=== PATIENT | male | born 1985 | race Caucasian/White ===

== ENCOUNTER 2016-08-19 21:05 | Emergency (ER) | payer OTHER ==
[2016-08-19 21:30] VITALS: BP 132/79; PULSE 78; RESP 18; TEMP 98.9
--- NOTE | 2016-08-19 21:55 | ED ---
ENT HPI - General Chief complaint: Dental/Oral Stated complaint: Dental Time Seen by Provider: 08/19/16 21:32 Source: patient, RN notes reviewed Mode of arrival: ambulatory Limitations: no limitations - History of Present Illness Initial comments: 31-year-old male presents emergency Department chief complaint of left-sided dental pain. Patient states this started on Monday. Patient states that he notices swelling to the face today. Patient denies any penile was not any pain radiating to the jaw. Patient denies any fever or chills with this. Patient states she was concerned due to his continued symptoms and discomforts without that he should be evaluated.Patient denies any recent fever, chills, shortness of breath, chest pain, back pain, abdominal pain, nausea vomiting, numbness or tingling, dysuria or hematuria, constipation or diarrhea, headaches or visual changes, or any other current symptoms. - Related Data Home Medications Medication Instructions Recorded Confirmed Aspirin EC [Ecotrin] 81 mg PO ONCE 05/18/15 05/18/15 Famotidine [Pepcid AC] 10 mg PO BID 05/18/15 05/18/15 Previous Rx's Medication Instructions Recorded ALPRAZolam [Xanax] 0.25 mg PO DAILY PRN #10 tab 05/18/15 Ondansetron Odt [Zofran Odt] 4 mg PO Q8HR PRN #10 tab 05/18/15 Ibuprofen [Motrin] 600 mg PO Q6HR PRN #20 tab 08/19/16 Penicillin V Potassium [Pen Vee K] 500 mg PO TID #40 tab 08/19/16 Allergies Allergy/AdvReac Type Severity Reaction Status Date / Time No Known Allergies Allergy Verified 08/19/16 21:30 Review of Systems ROS Statement: Those systems with pertinent positive or pertinent negative responses have been documented in the HPI. ROS Other: All systems not noted in ROS Statement are negative. Past Medical History Past Medical History: No Reported History Additional Past Medical History / Comment(s): hepatitis c History of Any Multi-Drug Resistant Organisms: None Reported Past Surgical History: No Surgical Hx Reported Past Psychological History: Anxiety, Depression Smoking Status: Current every day smoker Past Alcohol Use History: Occasional Past Drug Use History: None Reported, Heroin, Marijuana General Exam Limitations: no limitations General appearance: alert, in no apparent distress ENT exam: Present: mucous membranes moist, other (She does state. Poor dentition throughout. Some tenderness and inflammation to the bottom of the left upper jaw no known abscess observed.) Neck exam: Present: normal inspection. Absent: tenderness, meningismus, lymphadenopathy Respiratory exam: Present: normal lung sounds bilaterally. Absent: respiratory distress, wheezes, rales, rhonchi, stridor Cardiovascular Exam: Present: regular rate, normal rhythm, normal heart sounds. Absent: systolic murmur, diastolic murmur, rubs, gallop, clicks Neurological exam: Present: alert, oriented X3 Psychiatric exam: Present: normal affect, normal mood Skin exam: Present: warm, dry, intact, normal color. Absent: rash Course Vital Signs 08/19/16 21:27 Temperature 98.9 F Pulse Rate 78 Respiratory 18 Rate Blood Pressure 132/79 O2 Sat by Pulse 98 Oximetry Medical Decision Making - Medical Decision Making 31-year-old male presents for left-sided dental pain. This time we will start patient antibiotics and pain medication. We discussed follow-up with the dentist we did discuss return parameters all patient's questions. He stated he understood reasons. Plan. All questions have been answered. He will be discharged home. Disposition Clinical Impression: Dental caries, Toothache Disposition: HOME SELF-CARE Condition: Stable Instructions: Dental Caries (ED) Additional Instructions: Please use medication as discussed. Please follow up with family doctor if symptoms have not improved over the next two days. Please return to the emergency room if your symptoms increase or worsen or for any other concerns. [facility] [id number] [place] [address] [phone] (existing clients only) For new clients: [phone] 1st consult: $50 (includes Xrays) Usually 30% less then private dentist for visits after. [employer] Have to pay $50 for Xrays anmd rest is covered. [phone] Prescriptions: Ibuprofen [Motrin] 600 mg PO Q6HR PRN #20 tab PRN Reason: Pain Penicillin V Potassium [Pen Vee K] 500 mg PO TID #40 tab Referrals: Renny Cummins DO [Primary Care Provider] - 1-2 days Gee Amaral DDS [STAFF PHYSICIAN] - 1-2 days Time of Disposition: 21:55
[2016-08-19] MEDS ORDERED: IBUPROFEN 600 MG STARTER PACK 4 TAB BTL PO STA (21:56)
[2016-08-19] MEDS ORDERED: PENICILLIN VK 500MG STARTER 4 TAB BTL PO STA (21:56)
== END 2016-08-19 22:18 | disposition home or self-care (01) ==
LOC: EC 21:05
DX: K02.9 Dental caries, unspecified (principal); K08.89 Other specified disorders of teeth and supporting structures; F17.200 Nicotine dependence, unspecified, uncomplicated; Z79.82 Long term (current) use of aspirin; Z79.899 Other long term (current) drug therapy
CPT/HCPCS: 99282

== ENCOUNTER 2017-05-01 09:17 | Emergency (ER) | payer MEDICAID, OTHER ==
[2017-05-01] MEDS ORDERED: IPRATROPIUM-ALBUTEROL 3 ML NEB INHALATION STA (09:36)
--- NOTE | 2017-05-01 09:37 | ED ---
URI HPI - General Chief Complaint: Upper Respiratory Infection Stated Complaint: ANGIE Time Seen by Provider: 05/01/17 09:32 Source: patient, RN notes reviewed Mode of arrival: ambulatory Limitations: no limitations - History of Present Illness Initial Comments: This a 31-year-old male presents emergency Department chief complaint cough congestion for 2 weeks. Patient states that symptoms are progressively getting worse. He's been taking [id number] ibuprofen and antihistamines. Patient states it's not helping. He does have a recent diagnosis of asthma states he is a smoker. Denies any known fever, chills or night sweats. Patient states he has a mild sore throat denies ear pain, headache or dizziness. Patient states cough is occasionally productive with phlegm. He does complain of some chest tightness. Denies any nausea vomiting diarrhea constipation. Denies any other associated symptoms. - Related Data Home Medications Medication Instructions Recorded Confirmed Ibuprofen [Motrin Ib] 200 mg PO Q4HR PRN 05/01/17 05/01/17 Sertraline HCl [Zoloft] 150 mg PO HS 05/01/17 05/01/17 Previous Rx's Medication Instructions Recorded Prazosin [Minipress] 2 mg PO HS #28 cap 12/05/16 traZODone HCL [Desyrel] 50 mg PO HS #14 tab 12/05/16 Albuterol Sulfate [Proair Hfa] 1 - 2 puff INHALATION Q4HR PRN #1 05/01/17 inhaler Azithromycin [Zithromax Z-pack] 0 mg PO DIRECTED #1 pack 05/01/17 methylPREDNISolone [Medrol Dose 4 mg PO DIRECTED #1 pack 05/01/17 Pack] Allergies Allergy/AdvReac Type Severity Reaction Status Date / Time No Known Allergies Allergy Verified 05/01/17 09:43 Review of Systems ROS Statement: Those systems with pertinent positive or pertinent negative responses have been documented in the HPI. ROS Other: All systems not noted in ROS Statement are negative. Past Medical History Past Medical History: No Reported History Additional Past Medical History / Comment(s): hepatitis c History of Any Multi-Drug Resistant Organisms: None Reported Past Surgical History: No Surgical Hx Reported Past Anesthesia/Blood Transfusion Reactions: No Reported Reaction Past Psychological History: Anxiety, Depression Smoking Status: Current every day smoker Past Alcohol Use History: Occasional Past Drug Use History: Heroin, Marijuana General Exam Limitations: no limitations General appearance: alert, in no apparent distress Head exam: Present: atraumatic, normocephalic, normal inspection Eye exam: Present: normal appearance, PERRL, EOMI. Absent: scleral icterus, conjunctival injection, periorbital swelling ENT exam: Present: normal exam, normal oropharynx, mucous membranes moist, TM's normal bilaterally, normal external ear exam Neck exam: Present: normal inspection, full ROM. Absent: tenderness, meningismus, lymphadenopathy Respiratory exam: Present: wheezes (Bilateral throughout). Absent: normal lung sounds bilaterally, respiratory distress, rales, rhonchi, stridor Cardiovascular Exam: Present: regular rate, normal rhythm, normal heart sounds. Absent: systolic murmur, diastolic murmur, rubs, gallop, clicks Skin exam: Present: warm, dry, intact, normal color. Absent: rash Course Vital Signs 05/01/17 05/01/17 05/01/17 09:27 09:55 10:00 Temperature 97.1 F L Pulse Rate 93 85 Respiratory 20 20 Rate Blood Pressure 123/79 O2 Sat by Pulse 94 L Oximetry 05/01/17 10:13 Temperature Pulse Rate 88 Respiratory Rate Blood Pressure O2 Sat by Pulse Oximetry Medical Decision Making - Medical Decision Making 31-year-old male present to return for cough congestion. Patient's x-rays shows possible bronchitis. Patient does have a fair amount of bronchospasms. He was given a breathing treatment which helped. He'll be discharged with inhaler, steroids and antibiotics. Disposition Clinical Impression: Asthmatic bronchitis Disposition: HOME SELF-CARE Condition: Stable Instructions: Acute Bronchitis (ED) Additional Instructions: Please return to the Emergency Department if symptoms worsen or any other concerns. Prescriptions: Albuterol Sulfate [Proair Hfa] 1 - 2 puff INHALATION Q4HR PRN #1 inhaler PRN Reason: difficulty in breathing Azithromycin [Zithromax Z-pack] 0 mg PO DIRECTED #1 pack methylPREDNISolone [Medrol Dose Pack] 4 mg PO DIRECTED #1 pack Referrals: Renny Cummins DO [Primary Care Provider] - 1-2 days Time of Disposition: 10:44
--- NOTE | 2017-05-01 09:56 | XR ---
EXAMINATION TYPE: XR chest 2V DATE OF EXAM: 05/01/2017 COMPARISON: Prior chest x-ray 04/18/2015 HISTORY: Cough TECHNIQUE: Frontal and lateral views of the chest are obtained. FINDINGS: There are overlying metallic artifacts. No evident airspace disease, pneumothorax, or pleu ral effusion. Prominent lung volumes are present. Cardiac mediastinal silhouette, pulmonary vasculari ty and doreen within normal limits accounting for rotation. There is bronchial wall thickening. IMPRESSION: Correlate for bronchitis, reactive airways disease, follow-up as indicated.
[2017-05-01] MEDS ORDERED: methylPREDNISolone SOD SUCCI 125 MG/2 ML VIAL IM ONE (10:43)
[2017-05-01 10:57] VITALS: BP 131/69; PULSE 91; RESP 16; TEMP 97.4
== END 2017-05-01 10:57 | disposition home or self-care (01) ==
LOC: EC 09:17
DX: J45.909 Unspecified asthma, uncomplicated (principal); F32.9 Major depressive disorder, single episode, unspecified; F41.9 Anxiety disorder, unspecified; F17.200 Nicotine dependence, unspecified, uncomplicated; Z79.899 Other long term (current) drug therapy
CPT/HCPCS: 94640; 71046; 99283; 96372; J2930